=== PATIENT | female | born 1980 | race African-American/Black ===

== ENCOUNTER 2016-12-16 18:14 | Emergency (ER) | payer MEDICAID, OTHER ==
[~2016-12-16] VITALS: Ht 172.7 cm; Wt 75.0 kg
[~2016-12-16 18:14] MED LIST: LORTA5 PO; MACR100C PO
[2016-12-16 18:15] VITALS: BP 194/98; PULSE 98; RESP 20; TEMP 98.5; O2SAT 100
--- NOTE | 2016-12-16 18:43 | PD ---
Physical Exam Time Seen by Provider: 18:41 Narrative 36yo F c/o R forearm abscess x 1 week. Got a tattoo about 2 weeks ago and abscess started over the past weekend. Nuno fever, vomiting. Patient seen in triage. VS reviewed. Awaiting bed placement. Data Data Last Documented VS Vital Signs Date Time Temp Pulse Resp B/P Pulse Ox O2 Delivery O2 Flow Rate FiO2 12/16/16 18:15 98.5 98 20 194/98 100 Room Air MDM Supervised Visit with SKYLA: Cheryl Vizcarra Dec 16, 2016 18:43
--- NOTE | 2016-12-16 19:41 | PD ---
HPI Chief Complaint: Skin Problem Time Seen by Provider: 19:29 Travel History International Travel<30 days: No Contact w/Intl Traveler<30days: No Traveled to known affect area: No History of Present Illness HPI 36 yo F c/o R forearm pain associated with pain swelling and purulent discharge , constant and severe, worse with pressure and palpation. she has been trying to drain the area at home. 2 weeks prior she had a tattoo tattooed in the area of infection. she denies ivda. no fever/chills. PFSH Past Medical History Arthritis: Yes (KNEE) Atrial Fibrillation: Yes Autoimmune Disease: No Blood Disorders: No Anxiety: No Depression: Yes Heart Rhythm Problems: Yes Cancer: No Cardiovascular Problems: Yes (AFIB) High Cholesterol: Yes Chemotherapy: No Chest Pain: Yes Congestive Heart Failure: No Diabetes: No Diminished Hearing: No Endocrine: Yes Genitourinary: Yes Headaches: Yes Hypertension: Yes Immune Disorder: No Musculoskeletal: No Neurologic: Yes Psychiatric: No Reproductive: No Respiratory: Yes Migraines: Yes Radiation Therapy: No Thyroid Disease: Yes ?: Not Menopausal: No : 2 Para: 1 Miscarriage: 1 : 0 Past Surgical History AICD: No Arteriovenous Shunt: No Section: Yes Insulin Pump: No Joint Replacement: No Pacemaker: No Other Surgery: Yes (LEEP 2007) Social History Alcohol Use: No (SOCIALLY) Tobacco Use: Yes (4/DAY) Substance Use: No Allergies-Medications (Allergen,Severity, Reaction): Coded Allergies: No Known Allergies (Verified , 12/16/16) Reported Meds & Prescriptions Reported Meds & Active Scripts Active Ibuprofen 600 Mg Tab 600 Mg PO Q8HR PRN Reported Metoprolol Tartrate 50 Mg Tab 50 Mg PO DAILY Review of Systems General / Constitutional: No: Fever Skin: Positive Other Physical Exam Narrative GENERAL: 36 yo F, pleasant, wnwd SKIN: Warm and dry. Approximate 3cm draining lesion R forearm antecubital distribution with fluctuance and TTP. HEAD: Normocephalic. EYES: No scleral icterus. No injection or drainage. NECK: Supple, trachea midline. No JVD or lymphadenopathy. MUSCULOSKELETAL: No cyanosis, or edema. BACK: Nontender without obvious deformity. No CVA tenderness. Data Data Last Documented VS Vital Signs Date Time Temp Pulse Resp B/P Pulse Ox O2 Delivery O2 Flow Rate FiO2 12/16/16 18:15 98.5 98 20 194/98 100 Room Air VS reviewed Orders Lidocai-Epi 1%-1:100,000 Inj (Xylocaine- (12/16/16 19:45) Lidocaine 1% Inj (50 Ml) (Xylocaine 1% I (12/16/16 19:45) Ibuprofen (Motrin) (12/16/16 20:00) MDM Medical Decision Making Medical Screen Exam Complete: Yes Emergency Medical Condition: Yes Differential Diagnosis abscess, cellulitis, infection related to tattoo Narrative Course Abscess incised and drained. Return precautions discussed. At home management discussed. Procedures Procedure Narrative After the risks and benefits were discussed the following procedure was performed: INCISION AND DRAINAGE OF ABSCESS: The area was prepped and was sterilely draped. A subcutaneous wheal of 1 % Xylocaine with a total number 5 mL was used to anesthetize the area. The area was properly anesthetized. A number 11 scalpel was used to make a 1.5 -cm incision across the area of the abscess. Cultures were obtained. The abscess was drained an irrigated with normal saline. Sterile dressing applied. Patient advised to have packing removed in two days. Diagnosis Primary Impression: Abscess Referrals: Primary Care Physician 2 days Additional Instructions: You have a choice when it comes to health care, and we are glad that you chose [facility]. Hopefully, we have met your expectations on today's visit. You are welcome to return to [facility] at any time, as we are committed to meeting the health care needs of our community. Med/Other Pt SpecificInfo: No Change to Meds Scripts Ibuprofen 600 Mg Evp656 Mg PO Q8HR PRN (PAIN) #30 TAB Ref 0 Prov:Josemanuel Paris MD 12/16/16 Disposition: 01 DISCHARGE HOME Condition: Stable Josemanuel Paris MD Dec 16, 2016 19:41
[2016-12-16] MEDS ORDERED: LIDOCAINE HCL 1% 50 ML VIAL INFIL ONE (19:45)
[2016-12-16] MEDS ORDERED: LIDOCAINE 1%/EPINEPHrine 1:100,000 SOLN 20 ML VIAL INFIL ONE (19:45)
[2016-12-16] MEDS ORDERED: METO50TA PO (19:53)
[2016-12-16] MEDS ORDERED: IBUP-232 PO (20:00)
[2016-12-16] MEDS ORDERED: IBUPROFEN 600 MG TAB PO ONE (20:00)
== END 2016-12-16 20:19 | disposition home or self-care (01) ==
LOC: NEPD 18:14
DX: L02.413 Cutaneous abscess of right upper limb (principal); I48.91 Unspecified atrial fibrillation; I10 Essential (primary) hypertension; Z72.0 Tobacco use
CPT/HCPCS: 10061